=== PATIENT | female | born 1995 | race Caucasian/White ===

== ENCOUNTER 2016-11-27 13:03 | Emergency (ER) | payer BC, OTHER ==
--- NOTE | 2016-11-27 15:06 | ER Document Report ---
ED General - General Mode of Arrival: Ambulatory Information source: Patient TRAVEL OUTSIDE OF THE [place] IN LAST 30 DAYS: No - HPI Onset: Just prior to arrival Onset/Duration: Sudden Quality of pain: Achy Pain Level: 2 Associated symptoms: Nausea Exacerbated by: Denies Relieved by: Denies Similar symptoms previously: No Recently seen / treated by doctor: No <LIANNE QUINTANILLA - Last Filed: 11/27/16 19:24> <ELVIN FARRELL - Last Filed: 11/29/16 23:48> - General Chief Complaint: Near Syncope Stated Complaint: SYNCOPE Notes: Patient presents to the emergency department with complaints of near syncope, sweating and aching arms. Patient reports she was at a restaurant in [place] for lunch. She didn't feel good so she went to the bathroom. She reports the bathroom had to sit down in the bathroom because she started sweating and not feeling good. She then returned to her seat but had to sit down in a espinal because she started sweating and felt like she was going to pass out. Patient does not think she passed out. She also reports that her arms were aching. She denies chest pain shortness of breath. She denies fever vomiting or diarrhea but does report she was nauseated. Patient does have a history of thyroid cancer with thyroidectomy. Patient denies history of diabetes. Patient reports she hasn't been taking her thyroid medications for 2 weeks because she gets home late doesn't eat and she is supposed to take it with food. Patient also reports that she's not been eating that much either. Her sister reports she drinks a lot of soda and never drinks water. Patient reports she feels fine now. (LIANNE QUINTANILLA) - Related Data Allergies/Adverse Reactions: cefpodoxime [From Vantin] Allergy (Verified 11/27/16 13:25) Cephalosporins Allergy (Verified 11/27/16 13:25) Sulfa (Sulfonamide Antibiotics) Allergy (Verified 11/27/16 13:25) Past Medical History - General Information source: Patient - Social History Smoking Status: Unknown if Ever Smoked Cigarette use (# per day): No Frequency of alcohol use: None Drug Abuse: None Lives with: Family Family History: None Patient has suicidal ideation: No Patient has homicidal ideation: No Renal/ Medical History: Denies: Hx Peritoneal Dialysis Malignancy Medical History: Reports: Other - thyroid Past Surgical History: Reports: Other - Thyroidectomy <LIANNE QUINTANILLA - Last Filed: 11/27/16 19:24> Review of Systems <LIANNE QUINTANILLA - Last Filed: 11/27/16 19:24> <ELVIN FARRELL - Last Filed: 11/29/16 23:48> - Review of Systems Notes: Review HPI for review of systems., All other systems negative (ASHLEY QUINTANILLARICIA) Physical Exam <LIANNE QUINTANILLA - Last Filed: 11/27/16 19:24> <ELVIN FARRELL - Last Filed: 11/29/16 23:48> - Vital signs Vitals: Temp Pulse Resp BP Pulse Ox 97.4 F 81 16 112/61 100 11/27/16 13:26 11/27/16 13:26 11/27/16 13:26 11/27/16 13:26 11/27/16 13:26 - Notes Notes: PHYSICAL EXAMINATION: GENERAL: Well-appearing and in no acute distress HEAD: Atraumatic, normocephalic. EYES: Pupils equal round and reactive to light, extraocular movements intact, sclera anicteric, conjunctiva are normal. ENT: nares patent, oropharynx clear without exudates. Moist mucous membranes. NECK: Normal range of motion, supple without lymphadenopathy LUNGS: CTAB and equal. No wheezes rales or rhonchi. HEART: Regular rate and rhythm without murmurs ABDOMEN: Soft, no tenderness. No guarding, no rebound EXTREMITIES: Normal range of motion, no pitting edema. No cyanosis. NEUROLOGICAL: Cranial nerves grossly intact. Normal sensory/motor exams. PSYCH: Normal mood, normal affect. SKIN: Warm, Dry, normal turgor, no rashes or lesions noted (LIANNE QUINTANILLA) Course - Laboratory Result Diagrams: 11/27/16 15:15 11/27/16 15:15 - EKG Interpretation by Mi EKG shows normal: Sinus rhythm <JANIE QUINTANILLAIA - Last Filed: 11/27/16 19:24> - Laboratory Result Diagrams: 11/27/16 15:15 11/27/16 15:15 <ELVIN FARRELL - Last Filed: 11/29/16 23:48> - Re-evaluation Re-evalutation: 11/27/16 17:08 Patient reports she is feeling fine no feelings of sweating or near syncope. Recent Accu-Chek 176. Waiting on labs and urine. 11/27/16 17:[address] farrell regarding TSH, She advised t3t4, pt updated on labs. She will round on patient. pt reports she feels good is ready to go. 11/27/16 18:48 Dr Farrell in to see patient, advised contact svp group director at [facility]. Dr Hestre. Contacted [phone], page sent out to adult svp group director, pt updated on plan 11/27/16 19:00 Dr Alicia Gonzalez returned call. Labs reviewed. She reports it's important for the patient to be told to take medication. She reports that the thyroid suppresses thyroid tissue regrowth. She also reports the patient may take 2 pills the next day if she forgets a pill or even 7 pills once a week. I discussed this with patient she reports she was aware of this but she was also told that she wouldn't get the full dose if she did this. Patient reports she will definitely take her medications from now on. 0 (LIANNE QUINTANILLA) I personally evaluated and examined this patient. She does not exhibit acute myxedema coma at this time. She is alert and conversant and well appearing, and her vitals are within normal limits. I do suspect that her recent symptoms , as well as her pre-syncopal event and hypoglycemia today, are related to her hypothyroidism and noncompliance with her medication regiment. Case was discussed with pt's svp group director and patient educated on dangers of noncompliance with thyroid medications. Family on board as well. Appropriate for discharge and continued outpatient management. Strict return precautions discussed. (ELVIN FARRELL) - Vital Signs Vital signs: Temp Pulse Resp BP Pulse Ox 97.9 F 77 16 127/82 H 100 11/27/16 17:40 11/27/16 19:18 11/27/16 19:18 11/27/16 19:18 11/27/16 19:18 - Laboratory Laboratory results interpreted by me: 11/27/16 11/27/16 11/27/16 14:50 15:15 15:15 WBC 12.7 H RBC 5.53 H Hgb 16.1 H Hct 47.8 H RDW 15.3 H Seg Neutrophils % 81.5 H Absolute Neutrophils 10.4 H POC Glucose 59 L Hemoglobin A1c % Total Bilirubin 1.9 H AST 67 H Total Protein 8.9 H Albumin 5.4 H TSH Free T4 Free T3 pg/mL Urine Blood Ur Leukocyte Esterase 11/27/16 11/27/16 11/27/16 15:15 15:15 15:15 WBC RBC Hgb Hct RDW Seg Neutrophils % Absolute Neutrophils POC Glucose Hemoglobin A1c % 4.6 L Total Bilirubin AST Total Protein Albumin TSH 239.00 H Free T4 0.14 L Free T3 pg/mL 1.30 L Urine Blood Ur Leukocyte Esterase 11/27/16 11/27/16 16:47 16:50 WBC RBC Hgb Hct RDW Seg Neutrophils % Absolute Neutrophils POC Glucose 176 H Hemoglobin A1c % Total Bilirubin AST Total Protein Albumin TSH Free T4 Free T3 pg/mL Urine Blood MODERATE H Ur Leukocyte Esterase SMALL H Discharge <LIANNE QUINTANILLA - Last Filed: 11/27/16 19:24> <ELVIN FARRELL - Last Filed: 11/29/16 23:48> - Discharge Clinical Impression: Near syncope, Hypoglycemia Condition: Stable Disposition: HOME, SELF-CARE Instructions: Hypoglycemia ([facility]), Near Syncopal Episode ([facility]), Thyroid Hormone ([facility]) Additional Instructions: *You have been evaluated for near syncope, hypoglycemia *The thyroid medication will help suppress thyroid tissue regrowth *Take your medication as prescribed- It is extremely important that you take your thyroid medications *Ensure adequate fluid intake *Monitor your meals, eat appropriately *Follow up with Dr Hester within one week for recheck *Return to ED for worsening condition, changes, needs Referrals: FOSTER GUARDADO MD [Primary Care Provider] - Follow up in 1 week
[2016-11-27 15:52] LABS: ABSOLUTE BASOPHILS # (AUTO) 0.1 10^3/uL (0.0-0.2); ABSOLUTE LYMPHOCYTES (AUTO) 1.7 10^3/uL (0.5-4.7); ABSOLUTE MONOCYTES (AUTO) 0.5 10^3/uL (0.1-1.4); ABSOLUTE NEUT (AUTO) 10.4 10^3/uL (1.7-8.2); BASOPHILS % (AUTO) 0.6 % (0-2); EOSINOPHILS % (AUTO) 0.3 % (0-6); HEMATOCRIT 47.8 % (36.0-47.0); HEMOGLOBIN 16.1 g/dL (12.0-15.5); HGB HCT DIFFERENCE 0.5; LYMPHOCYTES % (AUTO) 13.5 % (13-45); MEAN CORPUSCULAR HEMOGLOBIN 29.1 pg (27.0-33.4); MEAN CORPUSCULAR HGB CONC 33.7 g/dL (32.0-36.0); MEAN CORPUSCULAR VOLUME 86 fl (80-97); MONOCYTES % (AUTO) 4.1 % (3-13); RED BLOOD COUNT 5.53 10^6/uL (3.72-5.28); RED CELL DISTRIBUTION WIDTH 15.3 % (11.5-14.0); SEGMENTED NEUTROPHILS % (AUTO) 81.5 % (42-78); WHITE BLOOD COUNT 12.7 10^3/uL (4.0-10.5)
[2016-11-27 16:14] LABS: ALANINE AMINOTRANSFERASE 42 U/L (9-52); ALBUMIN 5.4 g/dL (3.5-5.0); ALKALINE PHOSPHATASE 69 U/L (38-126); ANION GAP 19 (5-19); ASPARTATE AMINO TRANSFERASE 67 U/L (14-36); BILIRUBIN,DIRECT 0.2 mg/dL (0.0-0.4); BILIRUBIN,TOTAL 1.9 mg/dL (0.2-1.3); BLOOD UREA NITROGEN 12 mg/dL (7-20); CALCIUM 8.9 mg/dL (8.4-10.2); CARBON DIOXIDE 22 mmol/L (22-30); CHLORIDE 103 mmol/L (98-107); CREATININE RESULT 1.01 mg/dL (0.52-1.25); GLUCOSE 84 mg/dL (75-110); SODIUM 143.5 mmol/L (137-145); TOTAL PROTEIN 8.9 g/dL (6.3-8.2)
[2016-11-27 17:22] LABS: APPEARANCE,URINE CLOUDY; BILIRUBIN,URINE NEGATIVE (NEGATIVE); GLUCOSE, URINE NEGATIVE (NEGATIVE); KETONES,URINE NEGATIVE (NEGATIVE); LEUKOCYTE ESTERASE,URINE SMALL (NEGATIVE); NITRITE,URINE NEGATIVE (NEGATIVE); PROTEIN,URINE NEGATIVE (NEGATIVE); URINE SPECIFIC GRAVITY 1.005; UROBILINOGEN,URINE NEGATIVE mg/dL (<2.0)
[2016-11-27 18:21] LABS: FREE T3 1.3 pg/mL (2.77-5.27)
[2016-11-27 19:20] VITALS: BP 127/82
--- NOTE | 2016-11-28 17:11 | EKG REPORT ---
SEVERITY:- BORDERLINE ECG - SINUS RHYTHM BORDERLINE T ABNORMALITIES, DIFFUSE LEADS : Confirmed by: Abbey Hernandez MD 28-Nov-2016 17:10:02
== END 2016-11-27 19:20 | disposition home or self-care (01) ==
LOC: ER 13:03
DX: R55 Syncope and collapse (principal); E16.2 Hypoglycemia, unspecified; R61 Generalized hyperhidrosis; R11.0 Nausea; Z79.899 Other long term (current) drug therapy
CPT/HCPCS: 36415; 80053; 81001; 82962; 83036; 84439; 84443; 84481; 84703; 85025; 93005; 93010; 99284